=== PATIENT | male | born 1940 | race Caucasian/White ===

== ENCOUNTER 2022-11-07 15:07 | Emergency (ER) | payer MEDICARE, SELFPAY ==
--- NOTE | ~2022-11-07 | XR_ITS ---
EXAMINATION: XR chest 2V Exam Date/Time: 11/07/2022 16:11 ANALOG IC DESIGN ENGINEER HISTORY: cough/fever positive for covid Comparison: None available. RESULT: Lines, tubes, and devices: None. Lungs and pleura: Diffuse ground glass opacities with more focal airspace disease in the left lower lobe and anterior right middle lobe. Cardiomediastinal silhouette: Dilated aortic root. Normal heart size. Other: No acute osseous or upper abdominal finding. IMPRESSION: Groundglass and consolidative pulmonary opacities consistent with atypical/viral pneumonia. Reviewed, dictated and finalized at location [facility]. OG IC DESIGN ENGINEER IMPRESSION: Groundglass and consolidative pulmonary opacities consistent with atypical/yina l pneumonia.
[2022-11-07 15:27] VITALS: BP 171/68; PULSE 87; RESP 16; TEMP 37.9; O2SAT 98
--- NOTE | 2022-11-07 16:08 | ED.URI ---
HPI - URI/Sore Throat General Chief Complaint: Upper Respiratory Infection Stated Complaint: congested, shortness of breath, fever, dizzy Time Seen by Provider: 11/07/22 16:08 Source: patient and RN notes reviewed Mode of arrival: ambulatory Limitations: no limitations History of Present Illness HPI Narrative: 82-year-old male presents concern for chest congestion, shortness of breath, fever, dizziness, fatigue. Reports symptoms started 4 days ago, he took a COVID test at home that was positive but it was so he was concerned that it was not correct. Patient reports he is unsteady on his feet. MD elicited complaint: cough Related Data Home Medications Medication Instructions Recorded Confirmed hydrochlorothiazide 25 mg tablet mg 11/07/22 pravastatin 40 mg tablet mg 11/07/22 verapamil 240 mg tablet,extended mg PO 11/07/22 release Allergies Allergy/AdvReac Type Severity Reaction Status Date / Time No Known Allergies Allergy Verified 11/07/22 16:13 Review of Systems Review of Systems: CONSTITUTIONAL: Reports malaise, fatigue, fever. EYES: Denies visual changes, redness, or discharge. ENT: Reports rhinorrhea, congestion. Denies sinus pain, otalgia and sore throat. CARDIOVASCULAR: Denies chest pain, palpitations, or edema. RESPIRATORY: Reports cough, situational dyspnea. GASTROINTESTINAL: Denies abdominal pain, nausea, vomiting, diarrhea SKIN: Denies rash or itching. MUSCULOSKELETAL: Reports myalgia. NEUROLOGIC: Denies headache. All systems reviewed & are unremarkable except as noted in HPI and below PMFSH Comments At time of signature, agree with nursing past medical, surgical, social and family history. There is no relevant family history pertinent to the presenting complaint Exam Narrative: GENERAL: Well-appearing, well-nourished, and in no acute distress. HEAD: Normocephalic EYES: PERRLA, conjunctivae clear ENT: Nares clear, turbinates edematous and erythematous, clear discharge. Mucous membranes moist. TM pearly laird with dull light reflex bilaterally; no tragal tenderness. Oropharynx not erythematous without lesions. Tonsils not enlarged and without exudate, no drooling, no hoarseness, no trismus, uvula midline. NECK: Supple. No lymphadenopathy CHEST: Rhonchi noted in the bases bilaterally, otherwise Clear to auscultation, breath sounds equal. No wheezing, rales, or stridor. No respiratory distress, speaks in full sentences. HEART: Regular rate and rhythm. No murmur heard. SKIN: Warm, dry, no rash. NEURO: Alert and oriented x3. PSYCH: Normal mood and affect Course Course Emergency Course: Spo2 while ambulating decreased from 98 to 95. Patient is unsteady with ambulation Patient is aware of, understands and agrees to be transferred to the emergency room. Patient agrees to proceed directly to the emergency department. Portions of this record may have been created with voice recognition software Level of Care: Express Care Visit Vital Signs Vital signs: Vital Signs Temperature 100.3 F H 11/07/22 15:27 Pulse Rate 87 11/07/22 15:27 Respiratory Rate 16 11/07/22 15:27 Blood Pressure 171/68 H 11/07/22 15:27 Pulse Oximetry 98 11/07/22 15:27 Temperature 100.3 F H 11/07/22 15:27 Pulse Rate 87 11/07/22 15:27 Respiratory Rate 16 11/07/22 15:27 Blood Pressure 171/68 H 11/07/22 15:27 Pulse Oximetry 98 11/07/22 15:27 Reviewed. Transfer Transfered to: [facility] Transfer rationale: COVID pneumonia, advanced age Accepting physician: Jayson MARTINS - URI/Sore Throat [facility] Narrative Medical decision making narrative: Exam findings and imaging warrant further evaluation in the emergency room; patient is non-toxic appearing and is in no distress. Lab Data Attestation: I reviewed the patient's lab results. Imaging Data My impression: Images reviewed, interpreted by radiologist, agree, see report. Radiologist's impression: EXAMINATION:? XR chest 2V
--- NOTE | 2022-11-07 18:21 | PC.NURSE ---
1630- DATA CAPTURE CLERK called [facility] for consultation, and they state they agree pt needs a further worker, and have accepted pt for transfer. 1635- DATA CAPTURE CLERK talking to pt and , and pt states that he would just like to go home, states that she will take him to er, but would prefer to go to [facility] since that is where is pmd is on staff at. DATA CAPTURE CLERK called [facility], and they accept pt for transfer, dr ramirez. 1640- walking oxygen sat taken, pt states around the hallway he did feel like he was getting more short of breath, and sats went from 98%- to 95% with one lap up our hallway (which is approx 50 foot )
== END 2022-11-07 16:53 | disposition short-term general hospital (02) ==
PROVIDERS: Emergency Provider Nurse Practitioner; PCP Internal Medicine
DX: U07.1 COVID-19 (principal); J12.82 Pneumonia due to coronavirus disease 2019
CPT/HCPCS: 71046; 87426; 99213; C9803; G0463

== ENCOUNTER 2024-07-19 10:32 | Emergency (ER) | payer MEDICARE, SELFPAY ==
--- NOTE | ~2024-07-19 | XR_ITS ---
Clinical Indication: Cough, Covid 19 positive PA and lateral views of the chest: Comparison: 11/07/2022 Findings: Questionable minimal bibasilar haziness. No pleural effusion or pneumothorax. Cardiomedias tinal silhouette is within normal limits. Bones and soft tissues are unremarkable. Impression: Questionable minimal bibasilar haziness. Correlate for mild pulmonary edema versus atypical infection . Reviewed, dictated and finalized at [facility]. Impression: Questionable minimal bibasilar haziness. Correlate for mild pulmonary edema shirlene cedrci atypical infection.
[2024-07-19 10:48] VITALS: BP 125/57; PULSE 76; RESP 16; TEMP 36.8; O2SAT 98
--- NOTE | 2024-07-19 11:29 | ED.URI ---
HPI - URI/Sore Throat General Chief Complaint: Upper Respiratory Infection Stated Complaint: Cough/Dizziness/Vomiting Time Seen by Provider: 07/19/24 11:29 Source: patient and RN notes reviewed Mode of arrival: ambulatory Limitations: no limitations History of Present Illness HPI Narrative: 84 y/o male presented for c/o sore throat, chest congestion, cough, and watery eyes. Onset last evening. Denies sob, wheezing, n/v/d/f/c. Not taking anything for symptoms. MD elicited complaint: cough Related Data Home Medications Medication Instructions Recorded Confirmed hydrochlorothiazide 25 mg tablet mg 11/07/22 pravastatin 40 mg tablet mg 11/07/22 verapamil 240 mg tablet,extended mg PO 11/07/22 release Allergies Allergy/AdvReac Type Severity Reaction Status Date / Time No Known Allergies Allergy Verified 11/07/22 16:13 Review of Systems Review of Systems: CONSTITUTIONAL: Endorses malaise, denies chills, sweats, fever EYES: Denies visual changes, redness, or discharge ENT: Reports rhinorrhea, congestion, denies sinus pain, otalgia, sore throat CARDIOVASCULAR: Denies chest pain, palpitations, edema RESPIRATORY: Reports cough, post nasal drainage. Denies dyspnea GASTROINTESTINAL: Denies abdominal pain, nausea, vomiting, diarrhea SKIN: Denies rash or itching MUSCULOSKELETAL: denies myalgia NEUROLOGIC: Denies headache Exam Narrative: GENERAL: mildly Ill-appearing, nontoxic no acute distress. EYES: conjunctivae clear ENT: Mucous membranes moist. Oropharynx erythematous without lesions or exudate, no drooling, no hoarseness, no trismus, uvula midline. No tripod positioning, muffled voice, soft palate or pharyngeal wall bulging CHEST: Clear to auscultation, breath sounds equal. No wheezing, rhonchi, rales, or stridor. No respiratory distress, speaks in full sentences. HEART: Regular rate and rhythm. murmur is appreciated SKIN: Warm, dry, no rash. NEURO: Alert and oriented x3. PSYCH: Normal mood and affect Course Course Emergency Course: Patient is aware of diagnosis, understands and agrees to treatment plan. Anticipatory guidance given. Patient agrees to follow-up as directed and is aware of reasons to seek care at the emergency department. Portions of this record may have been created with voice recognition software Level of Care: Express Care Visit Vital Signs Vital signs: Vital Signs Temperature 98.2 F 07/19/24 10:48 Pulse Rate 76 07/19/24 10:48 Respiratory Rate 16 07/19/24 10:48 Blood Pressure 125/57 L 07/19/24 10:48 Pulse Oximetry 98 07/19/24 10:48 Oxygen Delivery Room Air 07/19/24 10:48 Temperature 98.2 F 07/19/24 10:48 Pulse Rate 76 07/19/24 10:48 Respiratory Rate 16 07/19/24 10:48 Blood Pressure 125/57 L 07/19/24 10:48 Pulse Oximetry 98 07/19/24 10:48 Oxygen Delivery Room Air 07/19/24 10:48 reviewed MDM - URI/Sore Throat MDM Narrative Medical decision making narrative: Positive COVID. Results of chest x-ray reviewed with patient. Reviewed prescriptions. Discussed physical exam findings. Advised supportive measures and signs/symptoms to go to the ER. Pt is appropriate for outpt treatment and f/u. Differential Diagnosis Differential diagnosis: Likely upper respiratory infection, sinusitis, viral infection and bronchitis Lab Data Labs: Lab Results 07/19/24 Range/Units 11:34 POC Influenza A Ag Negative POC Influenza B Ag Negative Imaging Data Radiologist's impression: Patient: Ky Verma : 1940 MR#: [id number] Age: 84 Acct:[id number] Loc: [facility] ADM Date: 07/19/24Attending Dr: Ordering Physician: Chandni Ayala APRN Date of Service: 07/19/24 Procedure(s): XR chest 2V Accession Number(s): [id number] cc: Chandni Ayala APRN~ Clinical Indication: Cough, Covid 19 positive PA and lateral views of the chest: Comparison: 11/07/2022 Findings: Questionable minimal biba
[2024-07-19 11:38] LABS: EDINFLUASCREEN Negative; EDINFLUBSCREEN Negative
== END 2024-07-19 12:13 | disposition home or self-care (01) ==
PROVIDERS: Emergency Provider Nurse Practitioner Family
DX: U07.1 COVID-19 (principal)
CPT/HCPCS: 71046; 87426; 87804; 99213; G0463